=== PATIENT | male | born 1950 | race African-American/Black ===

== ENCOUNTER 2016-04-13 08:11 | Outpatient (CLI) | payer OTHER ==
[2016-04-13 08:39] LABS: #Basophils 0.1 thou/uL (0.0-0.2); #Eosinphils 0.1 thou/uL (0.0-0.7); #Lymphocytes 2.2 thou/uL (1.20-3.40); #Monocytes 0.4 thou/uL (0.11-0.59); #Neutrophils 3.8 thou/uL (1.40-6.50); %Basophils 1.6 % (0.0-1.0); %Eosinophils 2.1 % (0.0-10.0); %Lymphocytes 33.3 % (21.0-51.0); %Monocytes 6.3 % (0.0-10.0); %Neutrophils 56.7 % (42.0-75.0); Hemoglobin 16.1 g/dL (14.0-18.0); Mean Corpuscular HGB CONC 32.6 g/dL (32.0-36.0); Mean Corpuscular Hemoglobin 31.7 pg (27.0-31.0); Mean Corpuscular Volume 97.2 fl (80.0-94.0); Mean Platelet Volume 8.4 fL (7.4-10.4); Platelet Count 231 thou/uL (130-400); RBC Distribution Width 12.1 % (11.5-14.5); Red Blood Cell (RBC) Count 5.06 mill/uL (4.70-6.10); White Blood Cell (WBC) Count 6.6 thou/uL (4.8-10.8)
[2016-04-13 08:44] LABS: Hemoglobin A1c 6.7 % (4.0-6.0)
[2016-04-13 09:18] LABS: ALT (SGPT) 40 U/L (0-55); AST (SGOT) 22 U/L (5-34); Albumin 4.1 g/dL (3.4-4.8); Alkaline Phosphatase 61 U/L (40-150); Bilirubin, Direct 0.2 mg/dL (0.1-0.3); Bilirubin, Total 0.4 mg/dL (0.2-1.2); Cardiac Risk 2.3 (Less than 4.5); Cholesterol 115 mg/dL (< 200 Desired); HDL Cholesterol 49 mg/dL (>60 Neg Risk); LDL Cholesterol, Calculated 55 mg/dL; Protein, Total 7.2 g/dL (5.8-8.1); Triglycerides 53 mg/dL (Less than 150)
[2016-04-13 09:28] LABS: Free T4 (Free Thyroxine) 1.12 ng/dL (0.70-1.48); PSA-Asymptomatic (SCREENING) 3.07 ng/mL (0-4.0); Thyroid Stimulating Hormone 0.1478 uIU/mL (0.35-4.94)
[2016-04-13 19:19] LABS: Creatinine, Urine 135.76 mg/dL (63-166); Microalbumin Urine 3.2 mg/dL (0.5-50.0); Microalbumin/Creat Ratio 23.6 mg/g (Less than 30)
== END 2016-04-13 08:12 | disposition home or self-care (01) ==
LOC: MADLAB 08:11
PROVIDERS: ATTEND Dentist Periodontics
DX: E78.2 Mixed hyperlipidemia (principal); E03.9 Hypothyroidism, unspecified; N42.9 Disorder of prostate, unspecified; E11.65 Type 2 diabetes mellitus with hyperglycemia
CPT/HCPCS: 36415; 80061; 80076; 82043; 83036; 84403; 84439; 84443; 85025; G0103

== ENCOUNTER 2016-08-10 09:13 | Outpatient (CLI) | payer OTHER ==
[2016-08-10 10:45] LABS: Hemoglobin A1c 6.8 % (4.0-6.0)
[2016-08-10 10:46] LABS: ALT (SGPT) 43 U/L (8-55); AST (SGOT) 23 U/L (5-34); Alkaline Phosphatase 57 U/L (40-150); Anion Gap 12 mmol/L (10-20); BUN (Urea Nitrogen) 13 mg/dL (8.4-25.7); Bilirubin, Total 0.3 mg/dL (0.2-1.2); Calc. Creatinine Clearance 0 mL/min (70-130); Calcium 8.9 mg/dL (7.8-10.44); Carbon Dioxide 25 mmol/L (23-31); Chloride 109 mmol/L (98-107); Estimated GFR-MDRD Greater than 90; Globulin 3.5 g/dL (2.4-3.5); Glucose 65 mg/dL (80-115); Potassium 3.8 mmol/L (3.5-5.1); Protein, Total 7.5 g/dL (5.8-8.1); Sodium 142 mmol/L (136-145)
[2016-08-10 10:57] LABS: Free T4 (Free Thyroxine) 0.86 ng/dL (0.70-1.48); Thyroid Stimulating Hormone 1.7268 uIU/mL (0.35-4.94)
== END 2016-08-10 09:14 | disposition home or self-care (01) ==
LOC: MADLAB 09:13
PROVIDERS: ATTEND Internal Medicine Endocrinology, Diabetes & Metabolism
DX: E78.2 Mixed hyperlipidemia (principal); E03.9 Hypothyroidism, unspecified; E11.65 Type 2 diabetes mellitus with hyperglycemia
CPT/HCPCS: 80053; 83036; 84439; 84443

== ENCOUNTER 2016-12-01 09:10 | Outpatient (CLI) | payer OTHER ==
[2016-12-01 09:43] LABS: Hemoglobin A1c 7.4 % (4.0-6.0)
[2016-12-01 09:56] LABS: ALT (SGPT) 52 U/L (8-55); AST (SGOT) 32 U/L (5-34); Albumin 3.9 g/dL (3.4-4.8); Alkaline Phosphatase 66 U/L (40-150); Anion Gap 9 mmol/L (10-20); BUN (Urea Nitrogen) 11 mg/dL (8.4-25.7); Bilirubin, Total 0.4 mg/dL (0.2-1.2); Calc. Creatinine Clearance 0 mL/min (70-130); Calcium 8.8 mg/dL (7.8-10.44); Carbon Dioxide 28 mmol/L (23-31); Chloride 109 mmol/L (98-107); Estimated GFR-MDRD Greater than 90; Globulin 3.4 g/dL (2.4-3.5); Glucose 88 mg/dL (80-115); Protein, Total 7.3 g/dL (5.8-8.1); Sodium 142 mmol/L (136-145)
[2016-12-01 10:15] LABS: Free T4 (Free Thyroxine) 1.01 ng/dL (0.70-1.48); Thyroid Stimulating Hormone 0.1271 uIU/mL (0.35-4.94)
== END 2016-12-01 09:11 | disposition home or self-care (01) ==
LOC: MADLAB 09:10
PROVIDERS: ATTEND Internal Medicine Endocrinology, Diabetes & Metabolism
DX: E03.9 Hypothyroidism, unspecified (principal); E78.2 Mixed hyperlipidemia; E11.65 Type 2 diabetes mellitus with hyperglycemia
CPT/HCPCS: 36415; 80053; 83036; 84439; 84443

== ENCOUNTER 2018-11-24 08:00 | Emergency (ER) | payer MEDICARE, OTHER ==
[2018-11-24] MEDS ORDERED: Cephalexin 500 MG CAP ONE (08:38)
[2018-11-24] MEDS ORDERED: Sulfameth/Trimethoprim DS 800-160mg TAB ONE (08:38)
== END 2018-11-24 08:53 | disposition home or self-care (01) ==
LOC: MADERS 08:00
DX: M70.21 Olecranon bursitis, right elbow (principal); I25.10 Atherosclerotic heart disease of native coronary artery without angina pectoris; E11.9 Type 2 diabetes mellitus without complications; I10 Essential (primary) hypertension; J45.909 Unspecified asthma, uncomplicated; E03.9 Hypothyroidism, unspecified; E78.5 Hyperlipidemia, unspecified; M19.90 Unspecified osteoarthritis, unspecified site; F17.210 Nicotine dependence, cigarettes, uncomplicated; Z79.899 Other long term (current) drug therapy; Z79.51 Long term (current) use of inhaled steroids; Z79.4 Long term (current) use of insulin; Z79.01 Long term (current) use of anticoagulants
CPT/HCPCS: 36416; 99283

== ENCOUNTER 2018-11-28 09:52 | Outpatient (CLI) | payer MEDICARE, OTHER ==
--- NOTE | 2018-11-28 11:49 | RAD ---
4 VIEWS RIGHT ELBOW: Date: 11/28/18 COMPARISON: None. HISTORY: Bumped elbow last week with pain. FINDINGS: 4 views of the right elbow show moderate diffuse soft tissue swelling. No fracture or dislocation see n. Mild degenerative changes are seen in the elbow joint. No elbow effusion is seen. IMPRESSION: Soft tissue swelling without acute osseous abnormality. POS: [facility]
== END 2018-11-28 09:53 | disposition home or self-care (01) ==
LOC: MADRAD 09:52
PROVIDERS: ATTEND Physician Assistant
DX: M25.521 Pain in right elbow (principal); M79.89 Other specified soft tissue disorders

== ENCOUNTER 2020-06-11 18:39 | Outpatient (CLI) | payer MEDICARE, OTHER ==
[2020-06-12 15:08] LABS: Hemoglobin A1c 6.6 % (4.0-6.0)
[2020-06-12 15:18] LABS: ALT (SGPT) 28 U/L (8-55); AST (SGOT) 29 U/L (5-34); Albumin 4.1 g/dL (3.4-4.8); Alkaline Phosphatase 66 U/L (40-110); Anion Gap 11 mmol/L (10-20); BUN (Urea Nitrogen) 15 mg/dL (8.4-25.7); Bilirubin, Total 0.3 mg/dL (0.2-1.2); Calc. Creatinine Clearance 0 mL/min (70-130); Calcium 8.8 mg/dL (7.8-10.44); Carbon Dioxide 27 mmol/L (23-31); Cardiac Risk 2.9 (Less than 4.5); Chloride 108 mmol/L (98-107); Cholesterol 118 mg/dl (< 200 Desired); Globulin 3.1 g/dL (2.4-3.5); HDL Cholesterol 41 mg/dL (>60 Neg Risk); LDL Cholesterol, Calculated 68 mg/dL; Potassium 3.9 mmol/L (3.5-5.1); Protein, Total 7.2 g/dL (5.8-8.1); Sodium 142 mmol/L (136-145); Triglycerides 46 mg/dL (Less than 150)
[2020-06-12 15:22] LABS: #Basophils 0.1 thou/uL (0.0-0.2); #Eosinphils 0.2 thou/uL (0.0-0.7); #Lymphocytes 2.3 thou/uL (1.20-3.40); #Monocytes 0.5 thou/uL (0.11-0.59); #Neutrophils 3.3 thou/uL (1.40-6.50); %Basophils 1.2 % (0.0-1.0); %Eosinophils 2.6 % (0.0-10.0); %Lymphocytes 36.6 % (21.0-51.0); %Monocytes 7.8 % (0.0-10.0); %Neutrophils 51.9 % (42.0-75.0); Hemoglobin 15.8 g/dL (14.0-18.0); Mean Corpuscular HGB CONC 31.6 g/dL (32.0-36.0); Mean Corpuscular Hemoglobin 32.1 pg (27.0-31.0); Mean Platelet Volume 9.5 fL (7.4-10.4); Platelet Count 206 thou/uL (130-400); RBC Distribution Width 12.2 % (11.5-14.5); Red Blood Cell (RBC) Count 4.92 mill/uL (4.70-6.10); White Blood Cell (WBC) Count 6.3 thou/uL (4.8-10.8)
[2020-06-12 15:36] LABS: Free T4 (Free Thyroxine) 0.93 ng/dL (0.70-1.48); Thyroid Stimulating Hormone 0.3841 uIU/mL (0.35-4.94)
[2020-06-12 15:37] LABS: PSA-Asymptomatic (SCREENING) 5.37 ng/mL (0-4.0)
[2020-06-12 16:02] LABS: Critical Call Chemistry REPORT FAXED; Glucose 47 mg/dL (80-115)
== END 2020-06-11 18:40 | disposition home or self-care (01) ==
LOC: MADLAB 18:39
PROVIDERS: ATTEND Internal Medicine Endocrinology, Diabetes & Metabolism
DX: E11.65 Type 2 diabetes mellitus with hyperglycemia (principal); E78.2 Mixed hyperlipidemia; E03.9 Hypothyroidism, unspecified; R97.20 Elevated prostate specific antigen [PSA]; N42.9 Disorder of prostate, unspecified; Z12.5 Encounter for screening for malignant neoplasm of prostate; E29.1 Testicular hypofunction
CPT/HCPCS: 36415; 80053; 80061; 82672; 83036; 84403; 84439; 84443; 85025; G0103

== ENCOUNTER 2022-11-13 08:24 | Outpatient (CLI) | payer MEDICARE, OTHER | END 2022-11-13 08:25 | disposition home or self-care (01) | LOC: MADRAD 08:24 | PROVIDERS: ATTEND Physician Assistant | DX: M19.012 Primary osteoarthritis, left shoulder (principal); M25.712 Osteophyte, left shoulder ==

== ENCOUNTER 2024-10-06 09:24 | Outpatient (CLI) | payer MEDICARE ==
[2024-10-06 10:22] LABS: ALT (SGPT) 21 U/L (Less than 45); AST (SGOT) 27 U/L (11-34); Albumin 3.5 g/dL (3.1-4.5); Alkaline Phosphatase 60 U/L (40-110); Anion Gap 10 mmol/L (10-20); BUN (Urea Nitrogen) 12 mg/dL (8.4-25.7); Bilirubin, Total 0.4 mg/dL (0.3-1.2); Calc. Creatinine Clearance 0 mL/min (70-130); Calcium 8.8 mg/dL (7.8-10.44); Carbon Dioxide 27 mmol/L (23-31); Cardiac Risk 2.5 (Less than 4.5); Chloride 110 mmol/L (98-107); Cholesterol 139 mg/dl (< 200 Desired); Globulin 3.5 g/dL (2.4-3.5); Glucose 97 mg/dL (83-110); HDL Cholesterol 56 mg/dL (>60 Neg Risk); LDL Cholesterol, Calculated 73 mg/dL; Potassium 4.0 mmol/L (3.5-5.1); Sodium 143 mmol/L (136-145); Triglycerides 52 mg/dL (Less than 150)
[2024-10-06 10:46] LABS: Anisocytosis SLIGHT = 6-15 cells (100X) (0-5/hpf); Hematocrit 46.1 % (42.0-52.0); Hemoglobin 14.4 g/dL (14.0-18.0); MDiff Complete? YES; Macrocytosis SLIGHT = 6-15 cells (100X) (0-5/hpf); Mean Corpuscular Hemoglobin 31.5 pg (27.0-31.0); Mean Corpuscular Volume 101.2 fl (78.0-98.0); Platelet Adequacy Comment Appears Adequate; Platelet Count 205 10x3/uL (130-400); Red Blood Cell (RBC) Count 4.56 mill/uL (4.70-6.10); White Blood Cell (WBC) Count 5.0 10x3/uL (4.8-10.8)
== END 2024-10-06 09:25 | disposition home or self-care (01) ==
LOC: MADLAB 09:24
PROVIDERS: ATTEND Internal Medicine Endocrinology, Diabetes & Metabolism
DX: E11.65 Type 2 diabetes mellitus with hyperglycemia (principal); E03.9 Hypothyroidism, unspecified; E29.1 Testicular hypofunction; N40.0 Benign prostatic hyperplasia without lower urinary tract symptoms; E55.9 Vitamin D deficiency, unspecified; R97.20 Elevated prostate specific antigen [PSA]
CPT/HCPCS: 36415; 80053; 80061; 83036; 84439; 84443; 85025

== ENCOUNTER 2024-11-05 12:54 | Outpatient (CLI) | payer MEDICARE ==
[2024-11-05 13:58] LABS: ALT (SGPT) 10 U/L (Less than 45); AST (SGOT) 20 U/L (11-34); Albumin 3.6 g/dL (3.1-4.5); Alkaline Phosphatase 64 U/L (40-110); Bilirubin, Direct 0.3 mg/dL (0.1-0.3); Bilirubin, Total 0.7 mg/dL (0.3-1.2); Cardiac Risk 2.4 (Less than 4.5); Cholesterol 119 mg/dl (< 200 Desired); HDL Cholesterol 49 mg/dL (>60 Neg Risk); LDL Cholesterol, Calculated 60 mg/dL; Triglycerides 51 mg/dL (Less than 150)
== END 2024-11-05 12:55 | disposition home or self-care (01) ==
LOC: MADLAB 12:54
PROVIDERS: ATTEND Internal Medicine Cardiovascular Disease
DX: I25.10 Atherosclerotic heart disease of native coronary artery without angina pectoris (principal)
CPT/HCPCS: 36415; 80061; 80076